=== PATIENT | male | born 1940 | race Caucasian/White ===

== ENCOUNTER 2022-12-25 19:04 | Emergency (ER) | payer MEDICAID ==
[~2022-12-25] VITALS: Ht 157.5 cm; Wt 65.8 kg
[2022-12-25 19:25] VITALS: BP 144/71; PULSE 60; RESP 16; TEMP 97.5; O2SAT 95
--- NOTE | 2022-12-25 19:28 | NUR ---
TO LOBBY A/W BED AMBULATORY
[2022-12-25 20:10] LABS: APPEARANCE,URINE CLEAR (CLEAR); BILIRUBIN,URINE NEGATIVE (NEGATIVE); BLOOD, URINE TRACE-I (NEGATIVE); COLOR,URINE YELLOW (YELLOW); LEUKOCYTE ESTERASE ,URINE 2+ (NEGATIVE); NITRITE, URINE NEGATIVE (NEGATIVE); UGLUCOSE NEGATIVE (NEGATIVE)
[2022-12-25] MEDS ORDERED: CIPR250T6 PO ×2 (20:45→20:59)
[2022-12-25] MEDS ORDERED: PYR100 PO ×2 (20:45→20:59)
[2022-12-25 20:58] VITALS: BP 144/71; PULSE 60; RESP 16; TEMP 97.5; O2SAT 95
--- NOTE | 2022-12-25 20:58 | NUR ---
Patient discharged with v/s stable. Written and verbal after care instructions given and explained. Patient alert, oriented and verbalized understanding of instructions. Ambulatory with steady gait. All questions addressed prior to discharge. ID band removed. Patient advised to follow up with PMD. Rx of CIPRO, PYRIDIUM given. Patient educated on indication of medication including possible reaction and side effects. Opportunity to ask questions provided and answered.
== END 2022-12-25 20:58 | disposition home or self-care (01) ==
LOC: MED 19:04
DX: N39.0 Urinary tract infection, site not specified (principal); I10 Essential (primary) hypertension; E78.00 Pure hypercholesterolemia, unspecified; Z86.73 Personal history of transient ischemic attack (TIA), and cerebral infarction without residual deficits; Z79.899 Other long term (current) drug therapy; Z79.2 Long term (current) use of antibiotics; Z79.01 Long term (current) use of anticoagulants
CPT/HCPCS: 81001; 87086; 87186; 99283

== ENCOUNTER 2023-06-12 10:24 | Inpatient (IN) | payer BC, MEDICAID ==
[~2023-06-12] VITALS: Ht 160 cm; Wt 60.3 kg
[~2023-06-12 10:24] MED LIST: CIPR250T6 PO; PYR100 PO
[2023-06-12 10:32] VITALS: BP 134/83; PULSE 74; RESP 18; TEMP 98.2; O2SAT 97
[2023-06-12 11:02] LABS: BASOPHILS % (AUTO) 0.6 % (0.0-2.0); EOSINOPHILS # (AUTO) 0.1 K/uL (0-0.4); EOSINOPHILS % (AUTO) 1.9 % (0.0-4.0); HEMATOCRIT 50.9 % (36-52); HEMOGLOBIN 17.1 g/dL (12.0-18.0); LYMPHOCYTES # (AUTO) 1.3 K/uL (2.0-11.5); MEAN CORPUSCULAR HEMOGLOBIN 32 pg (27-31); MEAN CORPUSCULAR HGB CONC 34 g/dL (33-37); MEAN CORPUSCULAR VOLUME 94.5 fL (80-94); MONOCYTES # (AUTO) 0.4 K/uL (0.8-1.0); MONOCYTES % (AUTO) 6.6 % (1.7-9.3); NEUTROPHILS # (AUTO) 4.8 K/uL (1.8-7.7); NEUTROPHILS % (AUTO) 71.9 % (42.2-75.2); PLATELET COUNT (AUTO) 343 K/uL (140-450); RED BLOOD CELL COUNT(AUTO) 5.39 MIL/uL (4.20-6.10); RED CELL DISTRIBUTION WIDTH 13.9 % (11.6-13.7); WHITE BLOOD COUNT (AUTO) 6.6 K/uL (4.8-10.8)
[2023-06-12 11:09] LABS: ANION GAP 12.5 (8-16); CARBON DIOXIDE 28.7 mmol/L (21-32); CHLORIDE 102 mmol/L (98-107); CREATININE 0.9 mg/dL (0.6-1.3); GLUCOSE 103 mg/dL (74-106); POTASSIUM 4.2 mmol/L (3.5-5.1); SODIUM SERUM 139 mmol/L (136-145); UREA NITROGEN, BLOOD 20 mg/dL (7-18)
[2023-06-12 11:13] LABS: INR 0.97 (0.8-1.2); PARTIAL THROMBOPLASTIN TIME 30.6 secs (22-35.6); PROTHROMBIN TIME 10.2 secs (10.8-13.4)
[2023-06-12 11:24] LABS: ALANINE AMINOTRANSFERASE 39 U/L (12-78); ALBUMIN 3.3 g/dL (3.4-5.0); ALKALINE PHOSPHATASE 102 U/L (50-136); ASPARTATE AMINOTRANSFERASE 20 U/L (15-37); TOTAL BILIRUBIN 0.7 mg/dL (0.0-1.0); TOTAL PROTEIN, SERUM 7.6 g/dL (6.4-8.2)
[2023-06-12 13:27] LABS: APPEARANCE,URINE CLEAR (CLEAR); BILIRUBIN,URINE NEGATIVE (NEGATIVE); BLOOD, URINE NEGATIVE (NEGATIVE); COLOR,URINE YELLOW (YELLOW); LEUKOCYTE ESTERASE ,URINE NEGATIVE (NEGATIVE); NITRITE, URINE NEGATIVE (NEGATIVE); PH,URINE 6.5 (5.0-9.0); PROTEIN,URINE NEGATIVE (NEGATIVE); UGLUCOSE NEGATIVE (NEGATIVE); UROBILINOGEN,URINE 0.2 EU/dL (0.2 - 1)
[2023-06-12 19:26] VITALS: O2SAT 95
[2023-06-12] MEDS ORDERED: CLOPIDOGREL 75 MG TAB PO ONE (21:20)
[2023-06-13] VITALS: O2SAT 95
[2023-06-13] MEDS ORDERED: ONDANSETRON 4 MG/2 ML VIAL IVP PRN (01:10)
[2023-06-13] MEDS ORDERED: ACETAMINOPHEN 325 MG TAB PO PRN (01:10)
[2023-06-13] MEDS ORDERED: MAGNESIUM HYDROXIDE 2400 MG/30 ML UDC PO PRN (01:10)
[2023-06-13] MEDS ORDERED: CLOP-68 PO (01:21)
[2023-06-13] MEDS ORDERED: PRAV10TA4 PO (01:21)
[2023-06-13] MEDS ORDERED: AMLO5TAB PO (01:21)
[2023-06-13 02:48] VITALS: O2SAT 95
[2023-06-13 03:09] LABS: CHOL/HDL RATIO 4.3 (1-4.5)
[2023-06-13 05:00] VITALS: O2SAT 92
[2023-06-13 07:00] VITALS: O2SAT 92
[2023-06-13] MEDS ORDERED: CLOPIDOGREL 75 MG TAB PO SCH (09:00)
[2023-06-13] MEDS ORDERED: ATORVASTATIN 20 MG TAB PO SCH (09:00)
[2023-06-13] MEDS ORDERED: ASPIRIN 81 MG TAB.CHEW PO ONE (09:00)
[2023-06-14 02:47] LABS: BASOPHILS % (AUTO) 0.7 % (0.0-2.0); EOSINOPHILS # (AUTO) 0.2 K/uL (0-0.4); EOSINOPHILS % (AUTO) 2.7 % (0.0-4.0); HEMATOCRIT 50.1 % (36-52); LYMPHOCYTES # (AUTO) 1.3 K/uL (2.0-11.5); LYMPHOCYTES % (AUTO) 19.4 % (20.5-51.1); MEAN CORPUSCULAR HEMOGLOBIN 32 pg (27-31); MEAN CORPUSCULAR HGB CONC 34 g/dL (33-37); MEAN CORPUSCULAR VOLUME 93.8 fL (80-94); MONOCYTES # (AUTO) 0.5 K/uL (0.8-1.0); MONOCYTES % (AUTO) 7.3 % (1.7-9.3); NEUTROPHILS # (AUTO) 4.8 K/uL (1.8-7.7); NEUTROPHILS % (AUTO) 69.9 % (42.2-75.2); PLATELET COUNT (AUTO) 374 K/uL (140-450); RED BLOOD CELL COUNT(AUTO) 5.34 MIL/uL (4.20-6.10); RED CELL DISTRIBUTION WIDTH 13.9 % (11.6-13.7); WHITE BLOOD COUNT (AUTO) 6.9 K/uL (4.8-10.8)
[2023-06-14 03:01] LABS: CALCIUM 9.2 mg/dL (8.5-10.1); CARBON DIOXIDE 25.8 mmol/L (21-32); CHLORIDE 104 mmol/L (98-107); CREATININE 0.9 mg/dL (0.6-1.3); GLUCOSE 126 mg/dL (74-106); POTASSIUM 3.8 mmol/L (3.5-5.1); SODIUM SERUM 138 mmol/L (136-145); UREA NITROGEN, BLOOD 30 mg/dL (7-18)
[2023-06-14 07:28] VITALS: O2SAT 95
[2023-06-14 07:30] VITALS: O2SAT 95
[2023-06-14 09:31] VITALS: BP 132/64; PULSE 63; RESP 15; TEMP 98.3; O2SAT 95
== END 2023-06-14 09:34 | disposition home or self-care (01) | DRG 47 ==
LOC: MED 10:24 → MTU 06-13 01:08
PROVIDERS: ADMIT Internal Medicine; ATTEND Internal Medicine
DX: G45.9 Transient cerebral ischemic attack, unspecified (principal); I69.354 Hemiplegia and hemiparesis following cerebral infarction affecting left non-dominant side; E78.5 Hyperlipidemia, unspecified; I10 Essential (primary) hypertension; E11.9 Type 2 diabetes mellitus without complications
CPT/HCPCS: 36415; 70450; 71045; 80048; 80053; 81003; 82948; 83735; 84484; 85025; 85610; 85730; 92526; 93005; 99291; Q9967

== ENCOUNTER 2024-02-10 16:07 | Emergency (ER) | payer BC ==
[~2024-02-10] VITALS: Ht 157.5 cm; Wt 64.5 kg
[~2024-02-10 16:07] MED LIST changes: +AMLO5TAB PO; -CIPR250T6 PO; +CLOP-68 PO; +PRAV10TA4 PO; -PYR100 PO
[2024-02-10 16:10] VITALS: BP 128/59; PULSE 52; RESP 16; TEMP 97.7; O2SAT 95
[2024-02-10 18:50] VITALS: BP 131/64; PULSE 60; RESP 18; TEMP 98; O2SAT 96
[2024-02-10 20:55] LABS: APPEARANCE,URINE CLEAR (CLEAR); BILIRUBIN,URINE NEGATIVE (NEGATIVE); BLOOD, URINE NEGATIVE (NEGATIVE); COLOR,URINE YELLOW (YELLOW); LEUKOCYTE ESTERASE ,URINE NEGATIVE (NEGATIVE); NITRITE, URINE NEGATIVE (NEGATIVE); PROTEIN,URINE NEGATIVE (NEGATIVE); UGLUCOSE NEGATIVE (NEGATIVE); UROBILINOGEN,URINE 0.2 EU/dL (0.2 - 1)
== END 2024-02-10 21:53 | disposition home or self-care (01) ==
LOC: MED 16:07
DX: R30.9 Painful micturition, unspecified (principal); R10.30 Lower abdominal pain, unspecified; Z86.73 Personal history of transient ischemic attack (TIA), and cerebral infarction without residual deficits; Z85.46 Personal history of malignant neoplasm of prostate; Z79.01 Long term (current) use of anticoagulants; Z79.899 Other long term (current) drug therapy
CPT/HCPCS: 81003; 99283